=== PATIENT | male | born 1980 | race Caucasian/White ===

== ENCOUNTER 2021-02-25 14:28 | Emergency (ER) | payer OTHER, SELFPAY ==
[2021-02-25 14:37] VITALS: BP 134/75; PULSE 98; RESP 16; TEMP 36.9; O2SAT 99
--- NOTE | 2021-02-25 14:47 | ED.URI ---
HPI - URI/Sore Throat General Chief Complaint: Upper Respiratory Infection Stated Complaint: sore throat History of Present Illness HPI Narrative: This is a 40-year-old that presents to the urgent care complaining of sore throat states that he has had it for the past 24 hours. Patient states that he has been up and down with something that makes him cough and with some drainage for the past week. Patient denies any fever nausea and/or vomiting no diarrhea. Patient states that he does have a past medical history strep Related Data Allergies Allergy/AdvReac Type Severity Reaction Status Date / Time No Known Drug Allergies Allergy Unknown Unknown Verified 02/25/21 14:55 Review of Systems Review of Systems: Sore throat cough and congestion All systems reviewed & are unremarkable except as noted in HPI and below PMFSH Comments At time as signature, I have reviewed and agree with nursing past medical, social, surgical and family history. Please see nursing chart for further information. There is no relevant family history pertinent to the presenting complaint. Exam Narrative: GENERAL:Well-appearing, well-nourished, and in no acute distress. HEAD:Normocephalic, atraumatic. EYES: PERRLA ENT: Nares clear, mild clear rhinorrhea. Mucous membranes moist. Moderate amount of pharyngeal secretion noted clear CHEST: Clear to auscultation. No respiratory distress. HEART: Regular rate and rhythm. Normal peripheral pulses. ABDOMEN: Soft, nontender, nondistended, normal active bowel sounds. EXTREMITIES: Normal range of motion. No edema. SKIN: Warm, dry, no rash. NEURO: No focal deficits. Alert and oriented x3. Course Course Emergency Course: Strep negative, influenza negative, Covid negative Vital Signs Vital signs: Vital Signs Temperature 98.4 F 02/25/21 14:37 Pulse Rate 98 02/25/21 14:37 Respiratory Rate 16 02/25/21 14:37 Blood Pressure 134/75 02/25/21 14:37 Pulse Oximetry 99 02/25/21 14:37 Temperature 98.4 F 02/25/21 14:37 Pulse Rate 98 02/25/21 14:37 Respiratory Rate 16 02/25/21 14:37 Blood Pressure 134/75 02/25/21 14:37 Pulse Oximetry 99 02/25/21 14:37 MDM - URI/Sore Throat Differential Diagnosis Differential diagnosis: Likely upper respiratory infection, otitis media, sinusitis, viral infection, bronchitis, influenza and pharyngitis Lab Data Labs: Lab Results 02/25/21 Range/Units 15:07 POC SARS CoV-2 Ag Negative (Negative) Influenza A Screen Negative Reference Range: Negative Influenza B Screen Negative Reference Range: Negative Strep Screen Presumptive Negative *(Reference Range: Negative)* Discharge Plan Discharge Clinical Impression: Pharyngitis Qualifiers: Pharyngitis/tonsillitis etiology: unspecified etiology Qualified Code(s): J02.9 - Acute pharyngitis, unspecified Patient Disposition: Home, Self-Care Condition: Stable Instructions: Antibiotic Form, Pharyngitis (ED), Strep Throat (ED) Additional Instructions: Your strep test today was negative. A throat culture will be sent to the laboratory for further testing. IF the test is positive, you will receive a phone call within 48 hours and an appropriate antibiotic will be initiated at that time. You will not receive a phone call if the test is negative. Until the throat culture proves otherwise, you should proceed with treating this is as a viral pharyngitis. Salt water gargles may alleviate some of your throat discomfort. Take Tylenol and/or ibuprofen per the package instructions for pain/fever. Go to the ER if your symptoms become worse of if ANY new symptoms develop Prescriptions: New cetirizine [Zyrtec] 10 mg tablet 10 mg PO DAILY PRN (Reason: allergy symptoms) Qty: 30 RF: 0 Follow-up/Referrals: PHYSIC
== END 2021-02-25 16:04 | disposition home or self-care (01) ==
PROVIDERS: Emergency Provider Nurse Practitioner Family
DX: J02.9 Acute pharyngitis, unspecified (principal); Z20.822 Contact with and (suspected) exposure to COVID-19
CPT/HCPCS: 87081; 87426; 87804; 87880; 99203; C9803; G0463